=== PATIENT | male | born 1960 | race Caucasian/White ===

== ENCOUNTER 2018-03-25 11:23 | Emergency (ER) | payer OTHER ==
[~2018-03-25] VITALS: Ht 167.6 cm; Wt 73.9 kg
[2018-03-25] MEDS ORDERED: ELIQUIS5 MG (12:06)
[2018-03-25] MEDS ORDERED: ATORVASTATIN CA10 MG (12:06)
[2018-03-25] MEDS ORDERED: PRINIVIL5 MG (12:06)
[2018-03-25] MEDS ORDERED: EQL FISH OIL 11 EACH (12:07)
[2018-03-25] MEDS ORDERED: CARVEDILOL12.5 MG (12:07)
[2018-03-25] MEDS ORDERED: LASIX20 MG (12:07)
[2018-03-25] MEDS ORDERED: ALLOPURINOL300 MG (12:07)
[2018-03-25] MEDS ORDERED: CLONAZEPAM0.5 MG (12:08)
[2018-03-25] MEDS ORDERED: AMBIEN10 MG (12:08)
== END 2018-03-25 15:34 | disposition home or self-care (01) ==
LOC: ER 11:23
DX: R31.29 Other microscopic hematuria (principal)